=== PATIENT | female | born 1990 | race Caucasian/White ===

== ENCOUNTER 2019-12-29 11:23 | Emergency (ER) | payer OTHER ==
[2019-12-29] MEDS ORDERED: Adacel (T-DAP) 0.5 ML SYRINGE ONE (12:09)
== END 2019-12-29 12:20 | disposition home or self-care (01) ==
LOC: MADERS 11:23
DX: S61.211A Laceration without foreign body of left index finger without damage to nail, initial encounter (principal); E78.00 Pure hypercholesterolemia, unspecified; F17.210 Nicotine dependence, cigarettes, uncomplicated; Z79.899 Other long term (current) drug therapy; W26.0XXA Contact with knife, initial encounter
CPT/HCPCS: 12001; 90471; 90715

== ENCOUNTER 2020-12-19 19:18 | Emergency (ER) | payer OTHER ==
[2020-12-19] MEDS ORDERED: Fluorescein Opthalmic Strip ONE (19:24)
[2020-12-19] MEDS ORDERED: Tetracaine 0.5% PF 4 ML BOT ONE (19:24)
[2020-12-19] MEDS ORDERED: Tobramycin Sulfate 0.3% Ophth Susp 5 ml Bottle ONE (19:54)
== END 2020-12-19 20:00 | disposition home or self-care (01) ==
LOC: MADERS 19:18
DX: S05.02XA Injury of conjunctiva and corneal abrasion without foreign body, left eye, initial encounter (principal); F17.210 Nicotine dependence, cigarettes, uncomplicated; W50.0XXA Accidental hit or strike by another person, initial encounter
CPT/HCPCS: 99283